=== PATIENT | female | born 1990 | race Caucasian/White ===

== ENCOUNTER 2017-12-23 19:13 | Outpatient (CLI) | payer MEDICAID ==
[2017-12-23 20:32] LABS: ADD UMIC NO; UR ASCORBIC ACID NEGATIVE (NEGATIVE); UR BILIRUBIN (Dip) NEGATIVE (NEGATIVE); UR BLOOD (Dip) NEGATIVE (NEGATIVE); UR CLARITY CLEAR (CLEAR); UR COLOR YELLOW (YELLOW); UR GLUCOSE (Dip) NEGATIVE (NEGATIVE); UR KETONES (Dip) TRACE mg/dL (NEGATIVE); UR LEUKOCYTE ESTERASE (Dip) NEGATIVE Leu/ul (NEGATIVE); UR NITRITE (Dip) NEGATIVE (NEGATIVE); UR SPECIFIC GRAVITY (Dip) 1.018 (1.003-1.030); UR TOTAL PROTEIN (Dip) NEGATIVE (NEGATIVE); UR UROBILINOGEN (Dip) NEGATIVE (NEGATIVE)
== END 2017-12-23 21:16 | disposition home or self-care (01) ==
LOC: OBT 19:13 → L-D 19:14 → OBT 21:16
DX: O24.410 Gestational diabetes mellitus in pregnancy, diet controlled (principal); O36.8130 Decreased fetal movements, third trimester, not applicable or unspecified; Z3A.30 30 weeks gestation of pregnancy
CPT/HCPCS: 76817; 76818; 81003; 87086

== ENCOUNTER 2018-01-14 15:19 | Outpatient (CLI) | payer MEDICAID ==
[2018-01-14 16:05] LABS: ADD MAN DIFF? NO
[2018-01-14 16:07] LABS: WHITE BLOOD COUNT 9.1 10^3/ul (4.8-10.8)
[2018-01-14 16:07] LABS: BASOPHILS % 0.4 % (0.0-2.0); EOSINOPHILS # 0.1 10^3/ul (0.0-0.5); EOSINOPHILS % 0.7 % (0.0-7.0); HEMATOCRIT 37.8 % (37.0-47.0); HEMOGLOBIN 13.4 g/dl (12.0-16.0); LYMPHOCYTES # 2.6 10^3/ul (0.8-2.9); LYMPHOCYTES % 28.3 % (15.0-51.0); MEAN CORPUSCULAR HEMOGLOBIN 29.8 pg (29.0-33.0); MEAN CORPUSCULAR HGB CONC 35.4 g/dl (32.0-37.0); MEAN PLATELET VOLUME 9.3 fl (7.4-10.4); MONOCYTE # 0.6 10^3/ul (0.3-0.9); MONOCYTES % 6.6 % (0.0-11.0); NEUTROPHIL # 5.7 10^3/ul (1.6-7.5); PLATELET COUNT 260 10^3/UL (140-415)
[2018-01-14 16:16] LABS: ADD UMIC NO; UR ASCORBIC ACID NEGATIVE (NEGATIVE); UR BILIRUBIN (Dip) NEGATIVE (NEGATIVE); UR BLOOD (Dip) NEGATIVE (NEGATIVE); UR CLARITY CLEAR (CLEAR); UR COLOR STRAW (YELLOW); UR GLUCOSE (Dip) NEGATIVE (NEGATIVE); UR KETONES (Dip) 1+ mg/dL (NEGATIVE); UR LEUKOCYTE ESTERASE (Dip) NEGATIVE Leu/ul (NEGATIVE); UR NITRITE (Dip) NEGATIVE (NEGATIVE); UR SPECIFIC GRAVITY (Dip) 1.008 (1.003-1.030); UR TOTAL PROTEIN (Dip) NEGATIVE (NEGATIVE); UR UROBILINOGEN (Dip) NEGATIVE (NEGATIVE)
== END 2018-01-14 17:10 | disposition home or self-care (01) ==
LOC: OBT 15:19 → L-D 15:19 → OBT 17:10
DX: O47.03 False labor before 37 completed weeks of gestation, third trimester (principal); Z3A.33 33 weeks gestation of pregnancy
CPT/HCPCS: 76817; 76818; 81003; 85025

== ENCOUNTER 2018-02-20 00:45 | Inpatient (IN) | payer MEDICAID ==
[2018-02-20] MEDS: LACTATED RINGER'S 1,000 ML IV ×4 (04:25→20:04)
[2018-02-20] MEDS ORDERED: LIDOCAINE 1% (MPF) 30 ML INJ INJ (04:30)
[2018-02-20] MEDS ORDERED: OXYTOCIN 30 UNITS/LR 500 ML IV ×2 (04:30)
[2018-02-20] MEDS ORDERED: CARBOPROST 250 MCG INJ IM (04:30)
[2018-02-20] MEDS ORDERED: BUTORPHANOL 2 MG INJ IV (04:30)
[2018-02-20] MEDS ORDERED: METHYLERGONOVINE 0.2 MG INJ IM (04:30)
[2018-02-20] MEDS ORDERED: MISOPROSTOL 200 MCG TAB PR (04:30)
[2018-02-20] MEDS: AMPICILLIN 2 GM/NS (PMX) 100 ML IV (04:40)
[2018-02-20 04:42] LABS: ADD MAN DIFF? NO
[2018-02-20 04:44] LABS: BASOPHILS % 0.4 % (0.0-2.0); EOSINOPHILS # 0.1 10^3/ul (0.0-0.5); EOSINOPHILS % 0.8 % (0.0-7.0); HEMATOCRIT 41.3 % (37.0-47.0); HEMOGLOBIN 14.3 g/dl (12.0-16.0); LYMPHOCYTES # 4.1 10^3/ul (0.8-2.9); LYMPHOCYTES % 39.4 % (15.0-51.0); MEAN CORPUSCULAR HEMOGLOBIN 28.8 pg (29.0-33.0); MEAN CORPUSCULAR HGB CONC 34.6 g/dl (32.0-37.0); MEAN CORPUSCULAR VOLUME 83.3 fl (82.0-101.0); MEAN PLATELET VOLUME 10.6 fl (7.4-10.4); MONOCYTE # 0.7 10^3/ul (0.3-0.9); MONOCYTES % 6.8 % (0.0-11.0); NEUTROPHIL # 5.4 10^3/ul (1.6-7.5); NEUTROPHILS % 51.8 % (39.0-77.0); PLATELET COUNT 227 10^3/UL (140-415); RED BLOOD COUNT 4.96 10^6/ul (4.20-5.40); RED CELL DISTRIBUTION WIDTH 14.2 % (11.5-14.5)
[2018-02-20 04:44] LABS: WHITE BLOOD COUNT 10.4 10^3/ul (4.8-10.8)
[2018-02-20 05:03] LABS: INR 0.85; PROTIME 11.7 Sec (11.9-14.9); PT RATIO 0.9
[2018-02-20 05:04] LABS: GLUCOSE 93 mg/dl (70-220)
[2018-02-20 05:04] LABS: PARTIAL THROMBOPLASTIN TIME 27.5 Sec (25.0-35.0)
[2018-02-20 05:35] LABS: HEPATITIS B SURFACE ANTIGEN NEGATIVE (NEGATIVE)
[2018-02-20] MEDS ORDERED: FENTAnyl 2MCG/ML-ROPIV 0.2% 100 ML (05:41)
[2018-02-20] MEDS: AMPICILLIN 1 GM/NS (PMX) 50 ML IV ×3 (08:47→16:30)
[2018-02-20] MEDS: DEXTROSE 5%-LR 1,000 ML IV (11:15)
[2018-02-20] MEDS: OXYTOCIN 30 UNITS/LR 500 ML IV (15:06)
[2018-02-20] MEDS: FENTAnyl 2MCG/ML-ROPIV 0.2% 100 ML BAG EPI ×2 (15:17→22:14)
[2018-02-20] MEDS ORDERED: DIPHENHYDRAMINE 50 MG INJ IV (15:30)
[2018-02-20] MEDS ORDERED: NALOXONE (0.4 MG/ML) INJ IV (15:30)
[2018-02-20 23:00] LABS: RAPID PLASMA REAGIN NONREACTIVE (NR)
[2018-02-21] MEDS: ONDANSETRON 4 MG INJ IV (00:37)
[2018-02-21] MEDS: MINERAL OIL LIGHT 10 ML VIAL TOP (03:46)
[2018-02-21] MEDS: OXYTOCIN 30 UNITS/LR 500 ML IV (03:47)
[2018-02-21] MEDS: LACTATED RINGER'S 1,000 ML IV (04:04)
[2018-02-21] MEDS: IBUPROFEN 600 MG TAB PO ×4 (04:05→23:58)
[2018-02-21] MEDS ORDERED: METHYLERGONOVINE 0.2 MG INJ IM (07:00)
[2018-02-21] MEDS ORDERED: OXYCODONE/ASPIRIN (4.88/325) TAB PO (07:00)
[2018-02-21] MEDS ORDERED: CARBOPROST 250 MCG INJ IM (07:00)
[2018-02-21] MEDS ORDERED: ZOLPIDEM 5 MG TAB PO (07:00)
[2018-02-21] MEDS ORDERED: MISOPROSTOL 200 MCG TAB PR (07:00)
[2018-02-21] MEDS ORDERED: OXYTOCIN 30 UNITS/LR 500 ML IV (07:00)
[2018-02-21] MEDS: WITCH HAZEL/GLYCERIN PAD PR (08:17)
[2018-02-21] MEDS: SENNA/DOCUSATE NA (8.6MG/50MG) TAB PO ×2 (08:17→21:01)
[2018-02-21] MEDS: LANOLIN 7 GM TUBE TOP ×2 (08:18→23:58)
[2018-02-21] MEDS: BENZOCAINE 20% 56 ML SPRAY TOP (08:18)
[2018-02-21] MEDS: OXYCODONE/ASPIRIN (4.88/325) TAB PO (08:23)
[2018-02-21] MEDS: CEPHALEXIN 500 MG CAP PO (23:58)
[2018-02-22] MEDS: IBUPROFEN 600 MG TAB PO ×4 (05:55→23:32)
[2018-02-22] MEDS: CEPHALEXIN 500 MG CAP PO ×4 (05:55→23:32)
[2018-02-22] MEDS: SENNA/DOCUSATE NA (8.6MG/50MG) TAB PO ×2 (09:00→21:22)
[2018-02-22 10:07] LABS: ADD MAN DIFF? NO
[2018-02-22 10:17] LABS: BASOPHIL # 0.1 10^3/ul (0.0-0.1); BASOPHILS % 0.4 % (0.0-2.0); EOSINOPHILS # 0.1 10^3/ul (0.0-0.5); HEMATOCRIT 38.7 % (37.0-47.0); HEMOGLOBIN 13.1 g/dl (12.0-16.0); LYMPHOCYTES # 3.5 10^3/ul (0.8-2.9); LYMPHOCYTES % 26.5 % (15.0-51.0); MEAN CORPUSCULAR HEMOGLOBIN 29.1 pg (29.0-33.0); MEAN CORPUSCULAR HGB CONC 33.9 g/dl (32.0-37.0); MEAN PLATELET VOLUME 10.1 fl (7.4-10.4); MONOCYTE # 0.6 10^3/ul (0.3-0.9); MONOCYTES % 4.6 % (0.0-11.0); NEUTROPHIL # 8.8 10^3/ul (1.6-7.5); PLATELET COUNT 200 10^3/UL (140-415); RED CELL DISTRIBUTION WIDTH 14.9 % (11.5-14.5)
[2018-02-22 10:17] LABS: WHITE BLOOD COUNT 13.2 10^3/ul (4.8-10.8)
[2018-02-23] MEDS: CEPHALEXIN 500 MG CAP PO ×3 (05:51→17:36)
[2018-02-23] MEDS: IBUPROFEN 600 MG TAB PO ×3 (05:51→17:36)
[2018-02-23] MEDS: DIPHTH/TET/ACEL PERTUSS (ADULT) 0.5 ML VIAL IM* (07:44)
[2018-02-23] MEDS: SENNA/DOCUSATE NA (8.6MG/50MG) TAB PO (09:11)
[2018-02-23 09:23] LABS: ADD MAN DIFF? NO
[2018-02-23 09:28] LABS: BASOPHILS % 0.3 % (0.0-2.0); EOSINOPHILS # 0.1 10^3/ul (0.0-0.5); EOSINOPHILS % 1.2 % (0.0-7.0); HEMATOCRIT 39.1 % (37.0-47.0); LYMPHOCYTES # 3.3 10^3/ul (0.8-2.9); LYMPHOCYTES % 28.4 % (15.0-51.0); MEAN CORPUSCULAR HEMOGLOBIN 28.6 pg (29.0-33.0); MEAN CORPUSCULAR HGB CONC 33.2 g/dl (32.0-37.0); MEAN CORPUSCULAR VOLUME 85.9 fl (82.0-101.0); MEAN PLATELET VOLUME 10.1 fl (7.4-10.4); MONOCYTE # 0.5 10^3/ul (0.3-0.9); MONOCYTES % 4.5 % (0.0-11.0); NEUTROPHIL # 7.5 10^3/ul (1.6-7.5); NEUTROPHILS % 65.1 % (39.0-77.0); PLATELET COUNT 203 10^3/UL (140-415); RED BLOOD COUNT 4.55 10^6/ul (4.20-5.40); RED CELL DISTRIBUTION WIDTH 14.7 % (11.5-14.5)
[2018-02-23 09:28] LABS: WHITE BLOOD COUNT 11.6 10^3/ul (4.8-10.8)
== END 2018-02-23 18:57 | disposition home or self-care (01) | DRG 775 ==
LOC: OBT 00:45 → PP1 02-21 05:40 → L-D 01:01 → OBT 03:55 → L-D 03:55
PROVIDERS: Obstetrics & Gynecology
PROC: 10E0XZZ Delivery of Products of Conception, External Approach (ICD-10-PCS; principal; 2018-02-21)
DX: O24.429 Gestational diabetes mellitus in childbirth, unspecified control (principal); O99.214 Obesity complicating childbirth; E66.9 Obesity, unspecified; Z37.0 Single live birth; Z3A.38 38 weeks gestation of pregnancy; Z68.30 Body mass index [BMI] 30.0-30.9, adult
CPT/HCPCS: 62319; 76815; 82947; 82962; 85025; 85610; 85730; 86592; 86850; 86900; 86901; 87340